=== PATIENT | male | born 1990 | race Caucasian/White ===

== ENCOUNTER 2018-09-13 17:48 | Emergency (ER) | payer OTHER ==
[~2018-09-13] VITALS: Ht 193 cm; Wt 72.6 kg
[2018-09-13 18:35] LABS: URINE CLARITY CLEAR; URINE COLOR YELLOW; URINE GLUCOSE-RANDOM* NEGATIVE (Negative); URINE PROTEIN (DIPSTICK) NEGATIVE (Negative)
[2018-09-13 18:36] LABS: URINE BILIRUBIN NEGATIVE (Negative); URINE BLOOD NEGATIVE (Negative); URINE KETONES NEGATIVE (Negative); URINE LEUKOCYTES-REFLEX NEGATIVE (Negative); URINE NITRITE-REFLEX NEGATIVE (Negative); URINE UROBILINOGEN 0.2 E.U./dl (0.2-1.0)
[2018-09-13 19:07] LABS: HEMATOCRIT 43.7 % (42.0-52.0); MCH 30.4 pg (26.0-34.0); MCHC 34.4 g/dL (28.0-37.0); MCV 88.4 fL (80.0-100.0); RBC 4.94 mil/uL (4.50-6.00); RDW 12.7 % (10.5-14.5); WBC 6.2 thou/uL (4.0-11.0)
[2018-09-13] MEDS ORDERED: ZOFRAN4 MG PO (19:12)
[2018-09-13 19:15] LABS: CALCIUM 9.2 mg/dL (8.5-10.1); CREATININE 1.1 mg/dL (0.7-1.3); POTASSIUM 3.7 mmol/L (3.5-5.1)
[2018-09-13 19:21] LABS: ALBUMIN 4.2 g/dL (3.4-5.0); TOTAL BILIRUBIN 0.4 mg/dL (<0.1-1.0); TOTAL PROTEIN 7.5 g/dL (6.4-8.2)
[2018-09-13 20:17] VITALS: BP 128/62
== END 2018-09-13 20:17 | disposition home or self-care (01) ==
LOC: ER 17:48
PROVIDERS: Student in an Organized Health Care Education/Training Program
DX: R19.7 Diarrhea, unspecified (principal); R42 Dizziness and giddiness; K58.9 Irritable bowel syndrome, unspecified